=== PATIENT | female | born 1990 | race Two or more races ===

== ENCOUNTER 2020-12-02 22:50 | Emergency (ER) | payer MEDICAID ==
[~2020-12-02] VITALS: Ht 149.9 cm; Wt 68.0 kg
--- NOTE | 2020-12-02 22:57 | NUR ---
Dr. Torres at bedside for MSE.
[2020-12-02] MEDS ORDERED: CEFTRIAXONE 1 G VIAL IM ONE (23:00)
[2020-12-02] MEDS ORDERED: TDAP DIPH,PERTUSS,TET VAC/PF 0.5 ML DISP.SYRIN IM ONE ×2 (23:00→23:05)
[2020-12-02] MEDS ORDERED: NEOMY/BACITRA/POLYMYXIN B OINT UD PACKET TP ONE ×2 (23:00→23:06)
[2020-12-02] MEDS ORDERED: LIDOCAINE 1%-EPI 1:100,000 20 ML VIAL IJ ONE (23:00)
[2020-12-02] MEDS ORDERED: SODIUM BICARBONATE 4.2 % (NEUT) 5 ML VIAL TP ONE (23:00)
[2020-12-02] MEDS ORDERED: CEFTRIAXONE 1 G VIAL ONE (23:15)
[2020-12-02] MEDS ORDERED: LIDOCAINE HCL 1% 20 ML VIAL ONE (23:15)
--- NOTE | 2020-12-03 00:04 | NUR ---
Patient discharged to home in stable condition. Written and verbal after care instructions given. Patient verbalizes understanding of instructions. Stressed follow up or return to ER for worsening s/s. Patient out of ER with steady gait, no acute signs of distress, VSS, all belongings taken.
[2020-12-03 00:05] VITALS: BP 135/60
== END 2020-12-03 00:05 | disposition home or self-care (01) ==
LOC: ER 23:06
DX: S01.81XA Laceration without foreign body of other part of head, initial encounter (principal); S01.21XA Laceration without foreign body of nose, initial encounter; V49.40XA Driver injured in collision with unspecified motor vehicles in traffic accident, initial encounter; Y92.410 Unspecified street and highway as the place of occurrence of the external cause; S09.90XA Unspecified injury of head, initial encounter; R03.0 Elevated blood-pressure reading, without diagnosis of hypertension
CPT/HCPCS: 12013; 90471; 90715; 96372; 99284; J0696; J3490; A4663